=== PATIENT | female | born 2000 | race Two or more races ===

== ENCOUNTER 2025-01-16 19:12 | Emergency (ER) | payer OTHER ==
[~2025-01-16] VITALS: Ht 172.7 cm; Wt 61.2 kg
[2025-01-16 20:30] LABS: HEMATOCRIT 30.3 % (36.0-45.00); HEMOGLOBIN 9.9 g/dL (12.0-15.00); MEAN CELL VOLUME 77.8 fL (80.00-100.00); MEAN CORPUSCULAR HEMOGLOBIN 25.5 pg (27.00-32.0); MEAN CORPUSCULAR HGB CONC 32.7 g/dl (32.0-36.0); PLATELET COUNT 248 K/uL (150-450); RED CELL DISTRIBUTION WIDTH 16.6 % (11.5-14.5)
[2025-01-16 20:50] LABS: CALCIUM 8.5 mg/dL (8.5-10.1); CREATININE SERUM 1.01 mg/dL (0.55-1.02); GFR 66.78; POTASSIUM 3.46 mEq/L (3.5-5.1)
[2025-01-16 21:15] LABS: URINE APPEARANCE Clear; URINE BILIRRUBIN Negative (NEGATIVE); URINE BLOOD Negative; URINE COLOR Yellow; URINE GLUCOSE Negative (NEGATIVE); URINE KETONE Trace (NEGATIVE); URINE LEUKOCYTE Trace; URINE NITRATE Negative; URINE PROTEIN Negative (NEGATIVE); URINE UROBILINOGEN 0.2 E.U./dl
[2025-01-16 21:19] LABS: URINE BACTERIA 873.8 uL (0.0-1933); URINE EPITHELIAL CELLS 43.6 uL (0.0-38.8); URINE RBC 4.5 uL (0.0-20.8); URINE WBC 54.2 uL (0.0-23.2)
[2025-01-16 21:22] LABS: URINE CAST 0.29 uL (0.0-1.40)
== END 2025-01-16 21:47 | disposition home or self-care (01) ==
LOC: ER 19:12
PROVIDERS: General Practice
DX: M54.50 Low back pain, unspecified (principal); N39.0 Urinary tract infection, site not specified; D64.89 Other specified anemias